=== PATIENT | male | born 1945 | race Caucasian/White ===

== ENCOUNTER 2017-05-10 17:17 | Emergency (ER) | payer SELFPAY ==
[~2017-05-10] VITALS: Ht 185.4 cm; Wt 87.6 kg
[~2017-05-10 17:17] MED LIST: LISI20TA11
[2017-05-10 17:19] VITALS: Ht 185.4 cm; Wt 87.6 kg
== END 2017-05-10 20:05 | disposition left against medical advice (07) ==
LOC: E/R 17:17
DX: Z53.21 Procedure and treatment not carried out due to patient leaving prior to being seen by health care provider (principal)